=== PATIENT | female | born 1985 ===

== ENCOUNTER 2024-12-24 11:26 | Outpatient (AMB) | payer OTHER, SELFPAY ==
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
[2024-12-24 11:41] VITALS: BP 104/56; PULSE 47; RESP 16; TEMP 36.7; O2SAT 98; BMI 28.0
== END 2024-12-24 15:33 | disposition home or self-care (01) ==
PROVIDERS: PCP Nurse Practitioner Family; Visit Provider Nurse Practitioner Family
DX: Z00.00 Encounter for general adult medical examination without abnormal findings (principal); M54.50 Low back pain, unspecified; G89.29 Other chronic pain; Z12.31 Encounter for screening mammogram for malignant neoplasm of breast

== ENCOUNTER → 2024-12-24 11:26 | Outpatient (BNVA) | payer OTHER, SELFPAY | PROVIDERS: PCP Nurse Practitioner Family; Visit Provider Nurse Practitioner Family | DX: Z00.00 Encounter for general adult medical examination without abnormal findings (principal); M54.50 Low back pain, unspecified; G89.29 Other chronic pain | CPT/HCPCS: 96127; 99202; 99386 ==